=== PATIENT | female | born 2000 | race Two or more races ===

== ENCOUNTER 2025-02-09 20:52 | Emergency (ER) | payer MEDICAID, OTHER ==
[~2025-02-09] VITALS: Ht 162.6 cm; Wt 77.2 kg
[2025-02-09 21:11] VITALS: BP 140/80; PULSE 77; RESP 20; TEMP 98.8; O2SAT 97
--- NOTE | 2025-02-09 21:27 | ED.PDOC ---
History of Present Illness(SKN HPI Comments A 24 year-old female presents to the ED with a chief complaint of laceration via knife to left hand 3rd digit minutes ago. Patient reports she was trying to cut the seed out of an avocado when she sliced her finger. Upon evaluation in triage, bleeding is controlled and there is no drainage identified at the site. Patient reports her last Tetanus shot is unknown. Patient has no further complaints at this time and otherwise denies fever, chills, dizziness, or LOC. Chief Complaint: Laceration Time Seen by MD: 21:16 History of Present Illness: Nurses Notes, Medications, Allergies Information Source: Patient Mode of Arrival: Ambulatory Severity: Moderate Timing: Minutes Duration: Since onset Prehospital treatment: None Location: Other (Finger ) Mechanism: Blunt Trauma Object: Other (Knife ) Condition of Object: Clean Wound Type: Laceration Tetanus: >5 Years Associated Signs and Symptoms: Redness, Other (Laceration to Left hand 3rd Digit ) Past Medical History PAST MEDICAL HISTORY: Denies Surgical History: Denies all surgeries [employer] History: No Pertinent GL[employer] W[employer]ER History Family History Family History: Reviewed,noncontributory to illness, No family hx of Cancer, No family hx of DM, No family hx of Heart todd, No family hx of HTN, No family hx o fKidney todd, No family hx of Liver todd, No family hx of Lung todd, No family hx of Stroke Social History Smoker: Non-Smoker Alcohol: Denies ETOH Use Drugs: Denies Drug Use Lives In: Home Constitutional: denies: chills, diaphoresis, fatigue, fever, malaise, sweats, weakness, others EENTM: denies: blurred vision, double vision, ear bleeding, ear discharge, ear drainage, ear pain, ear ringing, eye pain, eye redness, hearing loss, mouth pain, mouth swelling, nasal discharge, nose bleeding, nose congestion, nose pain, photophobia, tearing, throat pain, throat swelling, voice changes, others Respiratory: denies: cough, hemoptysis, orthopnea, SOB at rest, shortness of breath, SOB with excertion, stridor, wheezing, others Cardiovascular: denies: chest pain, dizzy spells, diaphoresis, Dyspnea on exertion, edema, irregular heart beat, left arm pain, lightheadedness, palpitations, PND, syncope, others Gastrointestinal: denies: abdomen distended, abdominal pain, blood streaked bowels, constipated, diarrhea, dysphagia, difficulty swallowing, hematemesis, melena, nausea, poor appetite, poor fluid intake, rectal bleeding, rectal pain, vomiting, others Genitourinary: denies: abnormal vagina bleeding, burning, dyspareunia, dysuria, flank pain, frequency, hematuria, incontinence, pain, , vagina discharge, urgency, others Neurological: denies: dizziness, fainting, headache, left sided numbness, left sided weakness, numbness, paresthesia, pre-existing deficit, right sided numbness, right sided weakness, seizure, speech problems, tingling, tremors, weakness, others Musculoskeletal: denies: back pain, gout, joint pain, joint swelling, muscle pain, muscle stiffness, neck pain, others Integumetry: reports: laceration (To palm of left hand); denies: bruises, change in color, change in hair/nails, dryness, lesions, lumps, rash, wounds, others Allergic/Immunocompromised: denies: Difficulty Healing, Frequent Infections, Hives, Itching, others Hematologic/Lymphatic: denies: anemia, blood clots, easy bleeding, easy bruising, swollen glands, others Endocrine: denies: excessive hunger, excessive sweating, excessive thirst, excessive urination, flushing, intolerance to cold, intolerance to heat, unexplained weight gain, unexplained weight loss, others Psychiatric: denies: anxiety, bipolar disorder, depression, hopeless, panic disorder, schizophrenia, sleepless, suicidal, others All Other Systems: Reviewed and Negative Physical Exam General Appearance: Mild Distress (Patient had some anxiety at time of evaluation.), Normal HEENT: Normal ENT Inspection, Pharynx Normal, TMs Normal Neck: Full Range of Motion, Non-Tender, Normal, Normal Inspection Respiratory: Chest Non-Tender, Lungs Clear, No Accessory Muscle Use, No Respiratory Distress, Normal Breath Sounds Cardiovascular: No Edema, No JVD, No Murmur, No Gallop, Normal Peripheral Pulses, Regular Rate/Rhythm Breast Exam: Deferred Gastrointestinal: No Organomegaly, Non Tender, No Pulsatile Mass, Normal Bowel Sounds, Soft Genitalia: Deferred Pelvic: Deferred Rectal: Deferred Extremities: No calf tenderness, Normal capillary refill, Normal inspection, Normal range of motion, Non-tender, No pedal edema Neurologic: Alert, No Motor Deficits, Normal Affect, Normal Mood, No Sensory Deficits Cerebellar Function: Normal Reflexes: Normal Skin: Lacerations (Patient has a shallow laceration to the MCP of the palmar aspect of the left hand/3rd digit. No active bleed. No tendon or muscle involvement.) Lymphatic: No Adenopathy Was a procedure done? Was a procedure done?: Yes Sedation Sedation?: No Other Procedure Notes Copious irrigation performed. Dermabond and Steri-Strips were utilized to approximate the wound. Patient was put in a finger splint and wrapped appropriately. Differential Diagnosis (INTG) Differential Diagnosis: Laceration, Puncture Wound X-Ray, Labs, Meds, VS Vital Signs Date Time Temp Pulse Resp B/P (MAP) Pulse Ox O2 Delivery O2 Flow Rate FiO2 02/09/25 21:11 98.8 77 20 140/80 (100) 97 98.8 X-Ray, Labs, Meds, VS Comment Advised patient utilize the finger splint for the next week to stave off any dehiscence of the wound. Patient will be provided with oral antibiotics for the next few days. Pain medication as needed. Time of 1ST Reevaluation: 21:51 Reevaluation 1ST: Improved Consultation: PCP Patient Education/Counseling: Diagnosis, Treatment Family Education/Counseling: Diagnosis, Treatment, No Family Present SEPSIS Sepsis Screen Recent Procedure: No On Antibiotic Therapy: No Respiratory Rate >20: No Heart Rate >90: No Temp<36 C (96.8 F) or >38.3 C: No SBP <90 or MAP <65 mmHG: No New Acute Mental Status Change: No Is the patient on CPAP, BIPAP,: No Vital Signs Date Time Temp Pulse Resp B/P (MAP) Pulse Ox O2 Delivery O2 Flow Rate FiO2 02/09/25 21:11 98.8 77 20 140/80 (100) 97 98.8 Departure 1 Departure Time of Disposition: 21:52 Impression: Primary Impression: Laceration of palm Disposition: HOME / SELF CARE / HOMELESS Condition: Stable Additional Instructions: Advise utilizing antibiotics as directed until completion as well as pain medication as needed. Patient should wear the finger splint for at least seven days to aid in wound healing. e-Prescriptions Acetaminophen (Acetaminophen) 500 Mg Tab 500 MG PO Q4HP PRN, #30 TAB Prov: AFSHIN ROJO PAC 02/09/25 Ibuprofen Micronized (Ibuprofen) 800 Mg Tab 800 MG PO Q8HP PRN, #15 TAB Prov: AFSHIN ROJO PAC 02/09/25 Cephalexin (KEFLEX CAPSULE) 250 Mg Cp 1 CAP PO QID for 7 Days, #28 CAP Prov: AFSHIN ROJO PAC 02/09/25 Discharged With: Self, Friend Critical Care Note Critical Care Time?: No Stability Stability form required: No Heart Score Heart Score: Heart Score Response (Comments) Value History N/A 0 EKG N/A 0 Age N/A 0 Risk Factors N/A 0 Troponin N/A 0 Total 0 I personally scribed for AFSHIN ROJO PAC ([email or web address]) on 02/09/25 at 21:27. Electronically submitted by Amanda Santos ([facility]). AFSHIN ROJO PAC Feb 09, 2025 21:27
[2025-02-09] MEDS ORDERED: CEPH250C PO (21:53)
[2025-02-09] MEDS ORDERED: ACET500T58 PO (21:53)
[2025-02-09] MEDS ORDERED: IBUP-1455 PO (21:53)
[2025-02-09] MEDS ORDERED: TETANUS-DIPTH-ACEL PERTUSSIS 0.5ML SYR Tdap IM ONE (22:00)
== END 2025-02-10 00:03 | disposition home or self-care (01) ==
LOC: ER 20:52
DX: S61.213A Laceration without foreign body of left middle finger without damage to nail, initial encounter (principal); W26.0XXA Contact with knife, initial encounter; Y93.89 Activity, other specified; Y92.89 Other specified places as the place of occurrence of the external cause; Y99.8 Other external cause status
CPT/HCPCS: 12001